=== PATIENT | female | born 1935 | race Caucasian/White ===

== ENCOUNTER 2017-04-11 08:15 | Emergency (ER) | payer OTHER ==
[~2017-04-11] VITALS: Ht 160 cm; Wt 117.9 kg
[~2017-04-11 08:15] MED LIST: DET1 PO; L20 PO; LANTI SC; LOP50 PO; LOT10 PO; PRA10 PO; PRI20 PO; REG10 PO; TYL4 PO; ZOL100 PO
[2017-04-11 08:23] VITALS: Ht 160 cm; Wt 117.9 kg
[2017-04-11 13:11] VITALS: BP 141/81
== END 2017-04-11 13:11 | disposition home or self-care (01) ==
LOC: ED 08:15
DX: S70.02XA Contusion of left hip, initial encounter (principal); S70.01XA Contusion of right hip, initial encounter; S40.012A Contusion of left shoulder, initial encounter; M25.561 Pain in right knee; I11.0 Hypertensive heart disease with heart failure; I50.9 Heart failure, unspecified; E11.9 Type 2 diabetes mellitus without complications; Z98.890 Other specified postprocedural states; W06.XXXA Fall from bed, initial encounter; Y93.89 Activity, other specified; Y99.8 Other external cause status; Y92.89 Other specified places as the place of occurrence of the external cause

== ENCOUNTER 2017-04-14 02:52 | Inpatient (IN) | payer OTHER ==
[~2017-04-14] VITALS: Ht 165.1 cm; Wt 113.4 kg
[2017-04-14 07:03] LABS: BASOPHIL % 0.4 % (0-2); PLATELET COUNT 357 x10^3mcL (130-400); RED CELL DISTRIBUTION WIDTH 14.4 % (11.5-14.5)
[2017-04-14 07:26] LABS: ALKALINE PHOSPHATASE 71 U/L (46-116); ALT/SGPT 34 U/L (14-59); AST/SGOT 60 U/L (15-37); BILIRUBIN TOTAL 0.54 mg/dL (0.20-1.00); CALCIUM 8.4 mg/dL (8.5-10.1); CARBON DIOXIDE 26.8 mmol/L (21-32); CHLORIDE SERUM 82 mmol/L (98-107); CREATININE SERUM 0.9 mg/dL (0.6-1.0); FREE T4 1.35 ng/dL (0.76-1.46); GLUCOSE SERUM 76 mg/dL (74-106); LIPASE 127 IU/L (73-393); POTASSIUM SERUM 5.2 mmol/L (3.5-5.1); TOTAL PROTEIN, SERUM 7.2 g/dL (6.4-8.2)
[2017-04-14 07:48] LABS: ALBUMIN 3.1 g/dL (3.4-5.0); SODIUM SERUM 116 mmol/L (136-145)
[2017-04-14 07:54] LABS: UA SPECIFIC GRAVITY <=1.005 (1.005-1.035); microscopic required? YES; urine erythrocyte TRACE (NEGATIVE)
[2017-04-14 09:38] LABS: MAGNESIUM 2.2 mg/dL (1.8-2.4); PHOSPHOROUS 2.9 mg/dL (2.5-4.9)
[2017-04-14 09:40] LABS: CHOLESTEROL/HDL RATIO 1.9
[2017-04-14 13:20] VITALS: BP 126/60
[2017-04-14 14:10] LABS: AMPHETAMINE QUAL UR NONE DETECTED (NEG <=1000)
[2017-04-14 14:53] LABS: CARBON DIOXIDE 30.1 mmol/L (21-32); CHLORIDE SERUM 84 mmol/L (98-107); CREATININE SERUM 0.9 mg/dL (0.6-1.0); GLUCOSE SERUM 114 mg/dL (74-106); POTASSIUM SERUM 4.8 mmol/L (3.5-5.1)
[2017-04-14 14:58] LABS: SODIUM SERUM 118 mmol/L (136-145)
[2017-04-14 18:37] VITALS: BP 95/53
[2017-04-14 19:14] LABS: CARBON DIOXIDE 28.5 mmol/L (21-32); CHLORIDE SERUM 86 mmol/L (98-107); GLUCOSE SERUM 149 mg/dL (74-106); POTASSIUM SERUM 4.7 mmol/L (3.5-5.1)
[2017-04-14 19:18] LABS: SODIUM SERUM 119 mmol/L (136-145)
[2017-04-14 21:07] VITALS: BP 121/69
[2017-04-14 21:58] LABS: CARBON DIOXIDE 30.3 mmol/L (21-32); CHLORIDE SERUM 87 mmol/L (98-107); GLUCOSE SERUM 148 mg/dL (74-106); POTASSIUM SERUM 4.7 mmol/L (3.5-5.1)
[2017-04-14 22:01] LABS: SODIUM SERUM 120 mmol/L (136-145)
[2017-04-15 01:29] LABS: CALCIUM 8.3 mg/dL (8.5-10.1); CARBON DIOXIDE 27.9 mmol/L (21-32); CHLORIDE SERUM 88 mmol/L (98-107); GLUCOSE SERUM 138 mg/dL (74-106); POTASSIUM SERUM 4.7 mmol/L (3.5-5.1)
[2017-04-15 01:32] LABS: SODIUM SERUM 122 mmol/L (136-145)
[2017-04-15 04:27] LABS: BASOPHIL % 0.2 % (0-2); PLATELET COUNT 360 x10^3mcL (130-400)
[2017-04-15 04:38] LABS: CALCIUM 8.4 mg/dL (8.5-10.1); CARBON DIOXIDE 28.9 mmol/L (21-32); CHLORIDE SERUM 89 mmol/L (98-107); GLUCOSE SERUM 137 mg/dL (74-106); POTASSIUM SERUM 4.9 mmol/L (3.5-5.1)
[2017-04-15 04:39] LABS: RED CELL DISTRIBUTION WIDTH 14.8 % (11.5-14.5)
[2017-04-15 04:53] LABS: SODIUM SERUM 122 mmol/L (136-145)
[2017-04-15 05:37] VITALS: BP 120/53
[2017-04-15 08:27] LABS: CALCIUM 8.2 mg/dL (8.5-10.1); CARBON DIOXIDE 29.6 mmol/L (21-32); CHLORIDE SERUM 91 mmol/L (98-107); GLUCOSE SERUM 132 mg/dL (74-106)
[2017-04-15 08:37] LABS: SODIUM SERUM 123 mmol/L (136-145)
[2017-04-15 08:49] VITALS: BP 142/60
[2017-04-15 13:03] VITALS: BP 121/53
[2017-04-15 17:34] VITALS: BP 121/53
[2017-04-15 19:47] LABS: CALCIUM 8.2 mg/dL (8.5-10.1); CARBON DIOXIDE 28.6 mmol/L (21-32); CHLORIDE SERUM 91 mmol/L (98-107); CREATININE SERUM 1.1 mg/dL (0.6-1.0); GLUCOSE SERUM 183 mg/dL (74-106)
[2017-04-15 19:50] LABS: SODIUM SERUM 124 mmol/L (136-145)
[2017-04-15 20:07] VITALS: BP 119/61
[2017-04-16 05:01] VITALS: BP 141/55
[2017-04-16 08:21] LABS: CALCIUM 8.6 mg/dL (8.5-10.1); CHLORIDE SERUM 91 mmol/L (98-107); GLUCOSE SERUM 139 mg/dL (74-106); POTASSIUM SERUM 4.8 mmol/L (3.5-5.1)
[2017-04-16 08:24] LABS: SODIUM SERUM 124 mmol/L (136-145)
[2017-04-16 08:38] LABS: BASOPHIL % 0.3 % (0-2); PLATELET COUNT 359 x10^3mcL (130-400)
[2017-04-16 08:40] LABS: RED CELL DISTRIBUTION WIDTH 14.9 % (11.5-14.5)
[2017-04-16 09:35] VITALS: BP 124/50
[2017-04-16 12:25] VITALS: BP 117/50
[2017-04-16 16:54] VITALS: BP 119/42
[2017-04-16] MEDS ORDERED: METOPROLOL TART25 M1 PO (18:37)
[2017-04-16] MEDS ORDERED: ASPIR 8181 MG PO (18:39)
[2017-04-16 20:32] VITALS: BP 116/58
[2017-04-17 04:57] VITALS: BP 130/51
[2017-04-17 06:24] LABS: BASOPHIL % 0.7 % (0-2); PLATELET COUNT 331 x10^3mcL (130-400)
[2017-04-17 06:44] LABS: RED CELL DISTRIBUTION WIDTH 14.7 % (11.5-14.5)
[2017-04-17 06:45] LABS: CALCIUM 8.3 mg/dL (8.5-10.1); CARBON DIOXIDE 31.2 mmol/L (21-32); CHLORIDE SERUM 91 mmol/L (98-107); CREATININE SERUM 1.1 mg/dL (0.6-1.0); GLUCOSE SERUM 153 mg/dL (74-106); POTASSIUM SERUM 5.4 mmol/L (3.5-5.1); SODIUM SERUM 125 mmol/L (136-145)
[2017-04-17 08:47] VITALS: BP 114/58
[2017-04-17 12:45] VITALS: BP 148/73
[2017-04-17 12:48] VITALS: BP 183/72
[2017-04-17 16:29] VITALS: BP 113/57
[2017-04-17 21:50] VITALS: BP 134/56
[2017-04-18 06:24] VITALS: BP 157/67
[2017-04-18 06:38] LABS: PLATELET COUNT 304 x10^3mcL (130-400)
[2017-04-18 06:39] LABS: BASOPHIL % 0 % (0-2); RED CELL DISTRIBUTION WIDTH 14.8 % (11.5-14.5)
[2017-04-18 07:02] LABS: CALCIUM 8.4 mg/dL (8.5-10.1); CARBON DIOXIDE 32.1 mmol/L (21-32); CHLORIDE SERUM 93 mmol/L (98-107); CREATININE SERUM 0.9 mg/dL (0.6-1.0); GLUCOSE SERUM 169 mg/dL (74-106); SODIUM SERUM 130 mmol/L (136-145)
[2017-04-18 10:40] VITALS: BP 126/52
[2017-04-18 15:00] VITALS: BP 131/51
[2017-04-18 17:20] VITALS: BP 147/55
[2017-04-18] MEDS ORDERED: NOR5 PO (19:03)
[2017-04-18] MEDS ORDERED: SOD1 PO (19:03)
[2017-04-18] MEDS ORDERED: ALLOPURINOL300 M1 PO (19:04)
[2017-04-18] MEDS ORDERED: L20 PO (19:04)
[2017-04-18 19:59] VITALS: BP 147/55
== END 2017-04-18 20:50 | DRG 640 ==
LOC: ED 02:52 → DU 07:40
PROVIDERS: Emergency Medicine; Family Medicine; Student in an Organized Health Care Education/Training Program
DX: E87.1 Hypo-osmolality and hyponatremia (principal); G93.41 Metabolic encephalopathy; D68.69 Other thrombophilia; N39.0 Urinary tract infection, site not specified; E44.0 Moderate protein-calorie malnutrition; E11.65 Type 2 diabetes mellitus with hyperglycemia; S00.03XA Contusion of scalp, initial encounter; I10 Essential (primary) hypertension; R31.9 Hematuria, unspecified; Z96.642 Presence of left artificial hip joint; F32.9 Major depressive disorder, single episode, unspecified; K21.9 Gastro-esophageal reflux disease without esophagitis; E78.5 Hyperlipidemia, unspecified; R29.6 Repeated falls; Z91.81 History of falling; W18.39XA Other fall on same level, initial encounter; Y92.012 Bathroom of single-family (private) house as the place of occurrence of the external cause
CPT/HCPCS: 83880; 84439; 87804; 97110-GP; 97116-GP; 97530-GP; J0696; J1885; J3490; J7030; J8597; Q0092